=== PATIENT | female | born 1980 | race Two or more races ===

== ENCOUNTER 2018-04-18 18:55 | Emergency (ER) | payer MEDICAID ==
[2018-04-18] MEDS ORDERED: Sodium Chloride 0.9% 1,000 ML IV ONE (19:04)
--- NOTE | 2018-04-18 19:36 | EDM.PDOC ---
ED HPI GENERAL MEDICAL PROBLEM - General Chief Complaint: Gastrointestinal Problem Stated Complaint: NAUSEA AND VOMITING Time Seen by Provider: 04/18/18 18:58 Source of Information: Reports: Patient History Limitations: Reports: No Limitations - History of Present Illness INITIAL COMMENTS - FREE TEXT/NARRATIVE: HISTORY AND PHYSICAL: History of present illness: Patient is a 37-year-old female who presents to the emergency room with complaints of weakness, nausea and vomiting for one hour. The patient states she was outside with her mother when they both smelled gas. They state they returned to their apartment building when symptoms started to present. They called EMS for transport and evaluation. [facility] has been on scene and assessed for gas leaks/carbon monoxide and were unable to identify. She denies any fever, chills, chest pain, shortness of breath or cough. Denies any abdominal pain, diarrhea, constipation or dysuria. She denies having any recent food or triggers that would cause her symptoms (that would also have her mother have the same symptoms). 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 Review of systems: As per history of present illness and below otherwise all systems reviewed and negative. Past medical history: As per history of present illness and as reviewed below otherwise noncontributory. Surgical history: As per history of present illness and as reviewed below otherwise noncontributory. Social history: No reported history of drug or alcohol abuse. Family history: As per history of present illness and as reviewed below otherwise noncontributory. Physical exam: General: Well-developed and well-nourished 37-year-old female. Alert and oriented. Nontoxic appearing and in no acute distress. HEENT: Atraumatic, normocephalic, pupils equal and reactive bilaterally, negative for conjunctival pallor or scleral icterus, mucous membranes moist, throat clear, neck supple, nontender, trachea midline. No drooling or trismus noted. No meningeal signs Lungs: Clear to auscultation, breath sounds equal bilaterally, chest nontender. Heart: S1S2, regular rate and rhythm without overt murmur Abdomen: Soft, nondistended, nontender. Negative for masses or hepatosplenomegaly. Negative for costovertebral tenderness. Pelvis: Stable nontender. Genitourinary: Deferred. Rectal: Deferred. Skin: Intact, warm, dry. No lesions or rashes noted. Extremities: Atraumatic, negative for cords or calf pain. Neurovascular unremarkable. Neuro: Awake, alert, oriented. Cranial nerves II through XII unremarkable. Cerebellum unremarkable. Motor and sensory unremarkable throughout. Exam nonfocal. Notes: Lab work is unremarkable. She states she feels improved after the IV fluids. She does have a generalized headache. We'll give her Toradol IV. She would like to be discharged to home. We discussed supportive care measures and signs and symptoms that would prompt her to return to the emergency room. She denies any further questions or concerns at this time. Diagnostics: CBC, CMP, UA, HCGU, Drug Screen, Carboxyhemaglobin Therapeutics: Normal Saline, Toradol Prescription: None Impression: Nausea and vomiting Headache Plan: 1. Get plenty of rest and adequate hydration over the next 24 hours. Weber diet , advance as tolerated. 2. Tylenol and/or ibuprofen as needed for pain management. 3. Eloped with her primary care provider in the next 1-2 days. Return to the ED as needed and as discussed. Definitive disposition and diagnosis as appropriate pending reevaluation and review of above. - Related Data Allergies Allergy/AdvReac Type Severity Reaction Status Date / Time No Known Allergies Allergy Verified 04/18/18 19:16 Home Meds: Home Meds Amitriptyline [Elavil] 25 mg PO BEDTIME 04/18/18 [History] FLUoxetine HCl [Prozac] 20 mg PO DAILY 04/18/18 [History] Past Medical History Psychiatric History: Reports: Depression - Past Surgical History Female Surgical History: Reports: Breast Reduction, Tubal Ligation Social & Family History - Tobacco Use Smoking Status *Q: Never Smoker Second Hand Smoke Exposure: No - Caffeine Use Caffeine Use: Reports: Coffee - Recreational Drug Use Recreational Drug Use: No ED ROS GENERAL - Review of Systems Review Of Systems: ROS reveals no pertinent complaints other than HPI. ED EXAM, GI/ABD - Physical Exam Exam: See Below (See dictation) Course - Vital Signs Last Recorded V/S: Last Vital Signs Temp 97.8 F 04/18/18 19:05 Pulse 90 04/18/18 19:05 Resp 16 04/18/18 19:05 BP 121/99 H 04/18/18 19:05 Pulse Ox 97 04/18/18 19:05 - Orders/Labs/Meds Orders: Active Orders 24 hr Category Date Time Status Ketorolac [Toradol] Med 04/18/18 20:18 Once 30 mg IVPUSH ONETIME ONE Labs: Laboratory Tests 04/18/18 04/18/18 04/18/18 Range/Units 19:12 19:12 19:12 WBC 6.67 (4.0-11.0) K/uL RBC 4.58 (4.30-5.90) M/uL Hgb 13.4 (12.0-16.0) g/dL Hct 39.7 (36.0-46.0) % MCV 86.7 (80.0-98.0) fL MCH 29.3 (27.0-32.0) pg MCHC 33.8 (31.0-37.0) g/dL RDW Std Deviation 39.0 (28.0-62.0) fl RDW Coeff of Jimi 12 (11.0-15.0) % Plt Count 261 (150-400) K/uL MPV 10.50 (7.40-12.00) fL Neut % (Auto) 40.1 L (48.0-80.0) % Lymph % (Auto) 38.5 (16.0-40.0) % [place] % (Auto) 9.9 (0.0-15.0) % Eos % (Auto) 11.2 H (0.0-7.0) % Baso % (Auto) 0.3 (0.0-1.5) % Neut # (Auto) 2.7 (1.4-5.7) K/uL Lymph # (Auto) 2.6 H (0.6-2.4) K/uL [place] # (Auto) 0.7 (0.0-0.8) K/uL Eos # (Auto) 0.8 H (0.0-0.7) K/uL Baso # (Auto) 0.0 (0.0-0.1) K/uL Nucleated RBC % 0.0 /100WBC Nucleated RBCs # 0 K/uL ABG Carboxyhemoglobin 1.8 (0-15) % Sodium 135 L (136-145) mmol/L Potassium 4.3 (3.5-5.1) mmol/L Chloride 103 (98-107) mmol/L Carbon Dioxide 24.8 (21.0-32.0) mmol/L BUN 11 (7.0-18.0) mg/dL Creatinine 0.5 L (0.6-1.0) mg/dL Est Cr Clr Drug Dosing TNP Estimated GFR (MDRD) > 60.0 ml/min Glucose 95 (74-106) mg/dL Calcium 10.2 H (8.5-10.1) mg/dL Total Bilirubin 0.3 (0.2-1.0) mg/dL AST 27 (15-37) IU/L ALT 59 (14-63) IU/L Alkaline Phosphatase 69 (46-116) U/L Total Protein 7.9 (6.4-8.2) g/dL Albumin 3.6 (3.4-5.0) g/dL Globulin 4.3 H (2.0-3.5) g/dL Albumin/Globulin Ratio 0.8 L (1.3-2.8) Urine Color Urine Appearance Urine pH (5.0-8.0) Ur Specific [place] (1.001-1.035) Urine Protein (NEGATIVE) mg/dL Urine Glucose (UA) (NEGATIVE) mg/dL Urine Ketones (NEGATIVE) mg/dL Urine Occult Blood (NEGATIVE) Urine Nitrite (NEGATIVE) Urine Bilirubin (NEGATIVE) Urine Urobilinogen (<2.0) EU/dL Ur Leukocyte Esterase (NEGATIVE) Urine RBC (0-2/HPF) Urine WBC (0-5/HPF) Ur Epithelial Cells (NONE-FEW) Urine Bacteria (NEGATIVE) Urine HCG, Qual (NEGATIVE) Urine Opiates Screen (NEGATIVE) Ur Oxycodone Screen (NEGATIVE) Urine Methadone Screen (NEGATIVE) Ur Barbiturates Screen (NEGATIVE) Ur Phencyclidine Scrn (NEGATIVE) Ur Amphetamine Screen (NEGATIVE) U Methamphetamines Scrn (NEGATIVE) U Benzodiazepines Scrn (NEGATIVE) U Cocaine Metab Screen (NEGATIVE) U Marijuana (THC) Screen (NEGATIVE) 04/18/18 04/18/18 04/18/18 Range/Units 19:17 19:17 19:17 WBC (4.0-11.0) K/uL RBC (4.30-5.90) M/uL Hgb (12.0-16.0) g/dL Hct (36.0-46.0) % MCV (80.0-98.0) fL MCH (27.0-32.0) pg MCHC (31.0-37.0) g/dL RDW Std Deviation (28.0-62.0) fl RDW Coeff of Jimi (11.0-15.0) % Plt Count (150-400) K/uL MPV (7.40-12.00) fL Neut % (Auto) (48.0-80.0) % Lymph % (Auto) (16.0-40.0) % [place] % (Auto) (0.0-15.0) % Eos % (Auto) (0.0-7.0) % Baso % (Auto) (0.0-1.5) % Neut # (Auto) (1.4-5.7) K/uL Lymph # (Auto) (0.6-2.4) K/uL [place] # (Auto) (0.0-0.8) K/uL Eos # (Auto) (0.0-0.7) K/uL Baso # (Auto) (0.0-0.1) K/uL Nucleated RBC % /100WBC Nucleated RBCs # K/uL ABG Carboxyhemoglobin (0-15) % Sodium (136-145) mmol/L Potassium (3.5-5.1) mmol/L Chloride (98-107) mmol/L Carbon Dioxide (21.0-32.0) mmol/L BUN (7.0-18.0) mg/dL Creatinine (0.6-1.0) mg/dL Est Cr Clr Drug Dosing Estimated GFR (MDRD) ml/min Glucose (74-106) mg/dL Calcium (8.5-10.1) mg/dL Total Bilirubin (0.2-1.0) mg/dL AST (15-37) IU/L ALT (14-63) IU/L Alkaline Phosphatase (46-116) U/L Total Protein (6.4-8.2) g/dL Albumin (3.4-5.0) g/dL Globulin (2.0-3.5) g/dL Albumin/Globulin Ratio (1.3-2.8) Urine Color YELLOW Urine Appearance CLEAR Urine pH 6.0 (5.0-8.0) Ur Specific [place] 1.020 (1.001-1.035) Urine Protein NEGATIVE (NEGATIVE) mg/dL Urine Glucose (UA) NEGATIVE (NEGATIVE) mg/dL Urine Ketones NEGATIVE (NEGATIVE) mg/dL Urine Occult Blood TRACE-INTACT (NEGATIVE) Urine Nitrite NEGATIVE (NEGATIVE) Urine Bilirubin NEGATIVE (NEGATIVE) Urine Urobilinogen 0.2 (<2.0) EU/dL Ur Leukocyte Esterase TRACE (NEGATIVE) Urine RBC 0-2 (0-2/HPF) Urine WBC 0-2 (0-5/HPF) Ur Epithelial Cells FEW (NONE-FEW) Urine Bacteria FEW (NEGATIVE) Urine HCG, Qual NEGATIVE (NEGATIVE) Urine Opiates Screen NEGATIVE (NEGATIVE) Ur Oxycodone Screen NEGATIVE (NEGATIVE) Urine Methadone Screen NEGATIVE (NEGATIVE) Ur Barbiturates Screen NEGATIVE (NEGATIVE) Ur Phencyclidine Scrn NEGATIVE (NEGATIVE) Ur Amphetamine Screen NEGATIVE (NEGATIVE) U Methamphetamines Scrn NEGATIVE (NEGATIVE) U Benzodiazepines Scrn NEGATIVE (NEGATIVE) U Cocaine Metab Screen NEGATIVE (NEGATIVE) U Marijuana (THC) Screen NEGATIVE (NEGATIVE) Meds: Medications Discontinued Medications Generic Name Dose Route Start Last Admin Trade Name Rivas PRN Reason Stop Dose Admin Sodium Chloride 1,000 mls @ 999 mls/hr 04/18/18 19:04 04/18/18 19:25 Normal Saline IV 04/18/18 20:04 999 mls/hr STAT ONE Administration Departure - Departure Time of Disposition: 20:19 Disposition: Home, Self-Care 01 Clinical Impression: Headache Qualifiers: Headache type: unspecified Headache chronicity pattern: acute headache Intractability: not intractable Qualified Code(s): R51 - Headache Nausea and vomiting Qualifiers: Vomiting type: unspecified Vomiting Intractability: non-intractable Qualified Code(s): R11.2 - Nausea with vomiting, unspecified - Discharge Information Forms: ED Department Discharge Additional Instructions: The following information is given to patients seen in the emergency department who are being discharged to home. This information is to outline your options for follow-up care. We provide all patients seen in our emergency department with a follow-up referral. The need for follow-up, as well as the timing and circumstances, are variable depending upon the specifics of your emergency department visit. If you don't have a primary care physician on staff, we will provide you with a referral. We always advise you to contact your personal physician following an emergency department visit to inform them of the circumstance of the visit and for follow-up with them and/or the need for any referrals to a consulting specialist. The emergency department will also refer you to a specialist when appropriate. This referral assures that you have the opportunity for follow-up care with a specialist. All of these measure are taken in an effort to provide you with optimal care, which includes your follow-up. Under all circumstances we always encourage you to contact your private physician who remains a resource for coordinating your care. When calling for follow-up care, please make the office aware that this follow-up is from your recent emergency room visit. If for any reason you are refused follow-up, please contact the [facility] Emergency Department at and asked to speak to the emergency department charge nurse. [facility] [address] [place] [id number] 1. Get plenty of rest and adequate hydration over the next 24 hours. Weber diet , advance as tolerated. 2. Tylenol and/or ibuprofen as needed for pain management. 3. Eloped with her primary care provider in the next 1-2 days. Return to the ED as needed and as discussed. - My Orders Last 24 Hours: My Active Orders 04/18/18 20:18 Ketorolac [Toradol] 30 mg IVPUSH ONETIME ONE - Assessment/Plan Last 24 Hours: My Active Orders 04/18/18 20:18 Ketorolac [Toradol] 30 mg IVPUSH ONETIME ONE
[2018-04-18 19:55] LABS: CHLORIDE,CL 103 mmol/L (98-107); SODIUM,NA 135 mmol/L (136-145)
[2018-04-18] MEDS ORDERED: Ketorolac 30 MG/ML SDV IVPUSH ONE (20:18)
== END 2018-04-18 20:44 | disposition home or self-care (01) ==
LOC: MW.ED 18:55
DX: R11.2 Nausea with vomiting, unspecified (principal); R51 Headache; Z79.899 Other long term (current) drug therapy
CPT/HCPCS: 36415; 80053; 80305; 81001; 81025; 82375; 85025; 96361; 96374; 99284; J1885; J7040; 99283

== ENCOUNTER 2019-10-08 16:21 | Emergency (ER) | payer MEDICAID ==
--- NOTE | 2019-10-08 17:52 | CR ---
INDICATION: Cough; body aches. Comparison: None. TECHNIQUE: Portable AP chest. FINDINGS: Normal size cardiac silhouette. Clear lung ponce with no evidence of acute pneumonic infiltrates or CHF. No pneumothorax or pleural effusion. IMPRESSION: Negative portable AP chest. Dictated by Kim Link MD @ Oct 08 2019 5:49PM Signed by Dr. Kim Link @ Oct 08 2019 5:50PM
--- NOTE | 2019-10-08 19:16 | EDM.PDOC ---
ED HPI GENERAL MEDICAL PROBLEM - General Chief Complaint: Respiratory Problem Stated Complaint: COUGH Time Seen by Provider: 10/08/19 18:00 - History of Present Illness INITIAL COMMENTS - FREE TEXT/NARRATIVE: 39 y/o female no medical problems, presetning to ED for cough, nasal congestion , body aches for a couple of days. pleuritic discomfort with coughing. no travel. no known covid contacts. reports fatigue and shortness of breath specially when coughing. back Pain Score (Numeric/FACES): 5 - Related Data Allergies Allergy/AdvReac Type Severity Reaction Status Date / Time No Known Allergies Allergy Verified 10/08/19 16:57 Home Meds: Home Meds Amitriptyline [Elavil] 25 mg PO DAILY 10/08/19 [History] FLUoxetine HCl [Prozac] 20 mg PO DAILY 10/08/19 [History] Levothyroxine mcg PO DAILY 10/08/19 [History] Past Medical History Psychiatric History: Reports: Depression - Infectious Disease History Infectious Disease History: Reports: None - Past Surgical History Female Surgical History: Reports: Breast Reduction, Tubal Ligation Musculoskeletal Surgical History: Reports: Other (See Below) Other Musculoskeletal Surgeries/Procedures:: right hand surgery. right ankle surgery Social & Family History - Family History Family Medical History: Noncontributory - Tobacco Use Smoking Status *Q: Never Smoker - Caffeine Use Caffeine Use: Reports: Coffee, Tea - Recreational Drug Use Recreational Drug Use: No ED ROS GENERAL - Review of Systems Review Of Systems: Comprehensive ROS is negative, except as noted in HPI. ED EXAM, GENERAL - Physical Exam Exam: See Below Exam Limited By: No Limitations General Appearance: Alert, WD/WN, No Apparent Distress Ears: Normal External Exam Nose: Normal Inspection Neck: Normal Inspection, Supple Respiratory/Chest: No Respiratory Distress, Lungs Clear, Normal Breath Sounds, No Accessory Muscle Use, Other (chest wall tenderness ) GI/Abdominal: Soft, Non-Tender Neurological: Alert, Oriented Skin Exam: Warm, Dry Course - Vital Signs Last Recorded V/S: Last Vital Signs Temp 96.4 F L 10/08/19 16:58 Pulse 94 10/08/19 16:58 Resp 20 10/08/19 16:58 BP 138/93 H 10/08/19 16:58 Pulse Ox 96 10/08/19 16:58 - Re-Assessments/Exams Free Text/Narrative Re-Assessment/Exam: 10/09/19 13:05 patient presenting with URI symptoms. no pna or symptoms to suggest pna. cxr was clear. patient given strict self isolation instructions due to covid. return precautions discussed. Departure - Departure Time of Disposition: 19:15 Disposition: Home, Self-Care 01 Clinical Impression: Viral URI with cough - Discharge Information Instructions: Upper Respiratory Infection, Adult, [id number] Referrals: PCP,None [Primary Care Provider] - Forms: ED Department Discharge Additional Instructions: COVID precautions self isolation: can discontinue when: You have had no fever for at least 72 hours (that is three full days of no fever without the use medicine that reduces fevers) AND other symptoms have improved (for example, when your cough or shortness of breath have improved) AND at least 7 days have passed since your symptoms first appeared The following information is given to patients seen in the emergency department who are being discharged to home. This information is to outline your options for follow-up care. We provide all patients seen in our emergency department with a follow-up referral. The need for follow-up, as well as the timing and circumstances, are variable depending upon the specifics of your emergency department visit. If you don't have a primary care physician on staff, we will provide you with a referral. We always advise you to contact your personal physician following an emergency department visit to inform them of the circumstance of the visit and for follow-up with them and/or the need for any referrals to a consulting specialist. The emergency department will also refer you to a specialist when appropriate. This referral assures that you have the opportunity for follow-up care with a specialist. All of these measure are taken in an effort to provide you with optimal care, which includes your follow-up. Under all circumstances we always encourage you to contact your private physician who remains a resource for coordinating your care. When calling for follow-up care, please make the office aware that this follow-up is from your recent emergency room visit. If for any reason you are refused follow-up, please contact the [facility] Emergency Department at and asked to speak to the emergency department charge nurse. Sepsis Event Note - Evaluation Sepsis Screening Result: No Definite Risk - Focused Exam Date Exam was Performed: 10/09/19 Time Exam was Performed: 13:00
== END 2019-10-08 19:35 | disposition home or self-care (01) ==
LOC: MW.ED 16:21
DX: J06.9 Acute upper respiratory infection, unspecified (principal); Z79.899 Other long term (current) drug therapy
CPT/HCPCS: 71045; 71045-26; 99283-25

== ENCOUNTER 2021-05-06 16:07 | Emergency (ER) | payer MEDICAID, OTHER ==
--- NOTE | 2021-05-06 16:09 | EDM.PDOC ---
<Nitin Pham - Last Filed: 05/06/21 18:51> ED HPI GENERAL MEDICAL PROBLEM - General Stated Complaint: KIDNEY HURT Time Seen by Provider: 05/06/21 16:07 Source of Information: Reports: Patient History Limitations: Reports: No Limitations - History of Present Illness INITIAL COMMENTS - FREE TEXT/NARRATIVE: 40-year-old female no past medical history presents for right flank pain. Patient noticed last night development of urinary frequency with some burning sensation at the end of urination. Denies fevers. Had some nausea but no vomiting until she was in the ER when she had a large episode of emesis. She notes the pain is in her right flank and over the last couple hours developed diffuse abdominal pain with bloating. Familial history of kidney stones but no personal history. Has not noted any gross hematuria. LMP ended a few days ago right flank Pain Score (Numeric/FACES): 10 - Related Data Allergies Allergy/AdvReac Type Severity Reaction Status Date / Time No Known Allergies Allergy Verified 05/06/21 16:23 Home Meds: Home Meds Amitriptyline [Elavil] 25 mg PO DAILY 10/08/19 [History] FLUoxetine HCl [Prozac] 20 mg PO DAILY 10/08/19 [History] Levothyroxine 25 mcg PO DAILY 10/08/19 [History] Hydrocodone/Acetaminophen [Hydrocodone-Acetamin 5-325 mg] 1 each PO Q6HR PRN #14 tab 05/06/21 [Rx] Ibuprofen 600 mg PO Q6HR PRN #30 tablet 05/06/21 [Rx] Ondansetron [Zofran ODT] 4 mg PO Q6H PRN #12 tab.dis 05/06/21 [Rx] Tamsulosin HCl [Flomax] 0.4 mg PO BEDTIME #7 cap.er.24h 05/06/21 [Rx] Past Medical History Psychiatric History: Reports: Depression - Infectious Disease History Infectious Disease History: Reports: None - Past Surgical History Female Surgical History: Reports: Breast Reduction, Tubal Ligation Musculoskeletal Surgical History: Reports: Other (See Below) Other Musculoskeletal Surgeries/Procedures:: right hand surgery. right ankle surgery Social & Family History - Family History Family Medical History: No Pertinent Family History - Caffeine Use Caffeine Use: Reports: Coffee, Tea ED ROS GENERAL - Review of Systems Review Of Systems: Comprehensive ROS is negative, except as noted in HPI. ED EXAM, GENERAL - Physical Exam Exam: See Below Exam Limited By: No Limitations General Appearance: Alert, WD/WN, No Apparent Distress Ears: Hearing Grossly Normal Throat/Mouth: Normal Voice, No Airway Compromise Head: Atraumatic, Normocephalic Respiratory/Chest: No Respiratory Distress, Lungs Clear, Normal Breath Sounds, No Accessory Muscle Use Cardiovascular: Normal Peripheral Pulses, Regular Rate, Rhythm GI/Abdominal: Soft, Non-Tender Back Exam: CVA Tenderness (R). No: CVA Tenderness (L) Extremities: Normal Inspection Neurological: Alert, Normal Cognition, Normal Gait Psychiatric: Normal Affect, Normal Mood Skin Exam: Warm, Dry, Intact, Normal Color Course - Re-Assessments/Exams Free Text/Narrative Re-Assessment/Exam: 05/06/21 16:34 Patient symptoms suggestive of pyelonephritis versus UTI versus renal stone. 05/06/21 17:51 Hematuria without evidence of UTI. Will get Noncon CT study to assess for renal stone. 05/06/21 18:51 5 mm obstructive UVJ stone with moderate right hydroureteral nephrosis. Patient's pain is not very well tolerated in the ER. I discussed potentially discharging with urology follow-up but patient is very concerned and does not feel like her pain is adequately managed. Additional Dilaudid ordered. We will reach out for urology referral. Departure - Departure Disposition: Home, Self-Care 01 Clinical Impression: Hydroureteronephrosis, Renal colic on right side - Discharge Information Instructions: Renal Colic, [id number], Kidney Stones, [id number] Referrals: PCP,None [Primary Care Provider] - Additional Instructions: You were seen and evaluated in ER today secondary to pain to your right flank. Your CT scan reveals a 5 mm obstructing stone at the right ureterovesicular junction with resultant moderate right hydronephrosis. This means that you have a kidney stone at the junction of your ureter and your bladder that 5 mm that is causing swelling to your kidney and your ureter. I have discussed your case with Dr. Adrian at [facility] and he is asked that you give his office a call at 8 AM and he will schedule you to be seen as soon as possible. Please call [phone] (and ask for urology )or [phone] at 8 AM tomorrow morning to schedule an appointment to see Dr. Adrian. If they do not give you an appointment within the next couple days, please ask to speak to his nurse so that she can assist you with getting squeezed in sooner. Please return to the ED if you start developing worsening pain or discomfort. The following information is given to patients seen in the emergency department who are being discharged to home. This information is to outline your options for follow-up care. We provide all patients seen in our emergency department with a follow-up referral. The need for follow-up, as well as the timing and circumstances, are variable depending upon the specifics of your emergency department visit. If you don't have a primary care physician on staff, we will provide you with a referral. We always advise you to contact your personal physician following an emergency department visit to inform them of the circumstance of the visit and for follow-up with them and/or the need for any referrals to a consulting specialist. The emergency department will also refer you to a specialist when appropriate. This referral assures that you have the opportunity for follow-up care with a specialist. All of these measure are taken in an effort to provide you with optimal care, which includes your follow-up. Under all circumstances we always encourage you to contact your private physician who remains a resource for coordinating your care. When calling for follow-up care, please make the office aware that this follow-up is from your recent emergency room visit. If for any reason you are refused follow-up, please contact the [facility] Emergency Department at and asked to speak to the emergency department charge nurse. [facility] - [facility] [address] [place] [address] [id number] [address] [address] <Bean Byrd - Last Filed: 05/06/21 21:09> ED HPI GENERAL MEDICAL PROBLEM - History of Present Illness INITIAL COMMENTS - FREE TEXT/NARRATIVE: 8:57 PM: Signout received at 7 PM awaiting urological consultation. I discussed the case with Dr. Adrian in [facility] and he has recommended that the patient call at 8 AM and they will schedule her to be seen by him as soon as possible. Patient is to call [phone] or [phone] and informed him that she was seen in the ER. Patient's pain appears to be well controlled in the ED at 9 PM. Patient feels comfortable with the plan at this time. Patient be discharged with a prescription for Flomax, ibuprofen, Zofran, and [place]. Patient is clinically hemodynamically stable at this time and appears comfortable on her phone. Reassessment at the time of disposition demonstrates that the patient is in no acute distress. The patient has remained stable throughout the entire ED visit and is without objective evidence for acute process requiring urgent intervention or hospitalization. The patient is stable for discharge, counseling is provided as documented above, discussed symptomatic treatment and specific conditions for return. I have spoken with the patient/caregiver and discussed todays findings, in addition to providing specific details for the plan of care. Questions are answered and there is agreement with the plan. Course - Vital Signs Last Recorded V/S: Last Vital Signs Temp 96.1 F L 05/06/21 16:24 Pulse 67 05/06/21 18:58 Resp 20 05/06/21 16:24 BP 160/96 H 05/06/21 18:58 Pulse Ox 96 05/06/21 18:58 - Orders/Labs/Meds Orders: Active Orders 24 hr Category Date Time Status Saline Lock Insert [OM.PC] Stat Oth 05/06/21 16:28 Ordered Labs: Laboratory Tests 05/06/21 05/06/21 05/06/21 Range/Units 11:33 11:33 17:02 WBC 8.96 (4.0-11.0) K/uL RBC 4.77 (4.30-5.90) M/uL Hgb 14.5 (12.0-16.0) g/dL Hct 42.1 (36.0-46.0) % MCV 88.3 (80.0-98.0) fL MCH 30.4 (27.0-32.0) pg MCHC 34.4 (31.0-37.0) g/dL RDW Std Deviation 40.7 (28.0-62.0) fl RDW Coeff of Jimi 13 (11.0-15.0) % Plt Count 382 (150-400) K/uL MPV 11.40 (7.40-12.00) fL Neut % (Auto) 41.0 L (48.0-80.0) % Lymph % (Auto) 41.3 H (16.0-40.0) % [place] % (Auto) 9.8 (0.0-15.0) % Eos % (Auto) 7.6 H (0.0-7.0) % Baso % (Auto) 0.3 (0.0-1.5) % Neut # (Auto) 3.7 (1.4-5.7) K/uL Lymph # (Auto) 3.7 H (0.6-2.4) K/uL [place] # (Auto) 0.9 H (0.0-0.8) K/uL Eos # (Auto) 0.7 (0.0-0.7) K/uL Baso # (Auto) 0.0 (0.0-0.1) K/uL Nucleated RBC % 0.0 /100WBC Nucleated RBCs # 0 K/uL Sodium 141 (136-145) mmol/L Potassium 4.3 (3.5-5.1) mmol/L Chloride 103 (98-107) mmol/L Carbon Dioxide 29.9 (21.0-32.0) mmol/L BUN 12 (7.0-18.0) mg/dL Creatinine 0.6 (0.6-1.0) mg/dL Est Cr Clr Drug Dosing 87.73 mL/min Estimated GFR (MDRD) > 60.0 ml/min Glucose 108 H (74-106) mg/dL Calcium 11.0 H (8.5-10.1) mg/dL Total Bilirubin 0.4 (0.2-1.0) mg/dL AST 28 (15-37) IU/L ALT 57 (14-63) IU/L Alkaline Phosphatase 94 (46-116) U/L Total Protein 8.5 H (6.4-8.2) g/dL Albumin 3.8 (3.4-5.0) g/dL Globulin 4.7 H (2.6-4.0) g/dL Albumin/Globulin Ratio 0.8 L (0.9-1.6) Urine Color YELLOW Urine Appearance SLT CLOUDY Urine pH 6.5 (5.0-8.0) Ur Specific [place] 1.025 (1.001-1.035) Urine Protein NEGATIVE (NEGATIVE) mg/dL Urine Glucose (UA) NEGATIVE (NEGATIVE) mg/dL Urine Ketones NEGATIVE (NEGATIVE) mg/dL Urine Occult Blood LARGE H (NEGATIVE) Urine Nitrite NEGATIVE (NEGATIVE) Urine Bilirubin NEGATIVE (NEGATIVE) Urine Urobilinogen 0.2 (<2.0) EU/dL Ur Leukocyte Esterase NEGATIVE (NEGATIVE) Urine RBC 10-15 (0-2/HPF) Urine WBC 1-3 (0-5/HPF) Ur Epithelial Cells FEW (NONE-FEW) Amorphous Sediment MODERATE (NEGATIVE) Urine Bacteria 1+ H (NEGATIVE) Urine Mucus LIGHT (NONE-MOD) Urine HCG, Qual (NEGATIVE) 05/06/21 Range/Units 17:02 WBC (4.0-11.0) K/uL RBC (4.30-5.90) M/uL Hgb (12.0-16.0) g/dL Hct (36.0-46.0) % MCV (80.0-98.0) fL MCH (27.0-32.0) pg MCHC (31.0-37.0) g/dL RDW Std Deviation (28.0-62.0) fl RDW Coeff of Jimi (11.0-15.0) % Plt Count (150-400) K/uL MPV (7.40-12.00) fL Neut % (Auto) (48.0-80.0) % Lymph % (Auto) (16.0-40.0) % [place] % (Auto) (0.0-15.0) % Eos % (Auto) (0.0-7.0) % Baso % (Auto) (0.0-1.5) % Neut # (Auto) (1.4-5.7) K/uL Lymph # (Auto) (0.6-2.4) K/uL [place] # (Auto) (0.0-0.8) K/uL Eos # (Auto) (0.0-0.7) K/uL Baso # (Auto) (0.0-0.1) K/uL Nucleated RBC % /100WBC Nucleated RBCs # K/uL Sodium (136-145) mmol/L Potassium (3.5-5.1) mmol/L Chloride (98-107) mmol/L Carbon Dioxide (21.0-32.0) mmol/L BUN (7.0-18.0) mg/dL Creatinine (0.6-1.0) mg/dL Est Cr Clr Drug Dosing mL/min Estimated GFR (MDRD) ml/min Glucose (74-106) mg/dL Calcium (8.5-10.1) mg/dL Total Bilirubin (0.2-1.0) mg/dL AST (15-37) IU/L ALT (14-63) IU/L Alkaline Phosphatase (46-116) U/L Total Protein (6.4-8.2) g/dL Albumin (3.4-5.0) g/dL Globulin (2.6-4.0) g/dL Albumin/Globulin Ratio (0.9-1.6) Urine Color Urine Appearance Urine pH (5.0-8.0) Ur Specific [place] (1.001-1.035) Urine Protein (NEGATIVE) mg/dL Urine Glucose (UA) (NEGATIVE) mg/dL Urine Ketones (NEGATIVE) mg/dL Urine Occult Blood (NEGATIVE) Urine Nitrite (NEGATIVE) Urine Bilirubin (NEGATIVE) Urine Urobilinogen (<2.0) EU/dL Ur Leukocyte Esterase (NEGATIVE) Urine RBC (0-2/HPF) Urine WBC (0-5/HPF) Ur Epithelial Cells (NONE-FEW) Amorphous Sediment (NEGATIVE) Urine Bacteria (NEGATIVE) Urine Mucus (NONE-MOD) Urine HCG, Qual NEGATIVE (NEGATIVE) Meds: Medications Discontinued Medications Generic Name Dose Route Start Last Admin Trade Name Freq PRN Reason Stop Dose Admin Hydromorphone HCl 0.5 mg 05/06/21 17:52 05/06/21 18:12 Hydromorphone 2 Mg/Ml Syringe IVPUSH 05/06/21 17:53 0.5 mg ONETIME ONE Administration Hydromorphone HCl 0.5 mg 05/06/21 18:51 05/06/21 19:12 Hydromorphone 2 Mg/Ml Syringe IVPUSH 05/06/21 18:52 0.5 mg ONETIME ONE Administration Hydromorphone HCl 1 mg 05/06/21 19:52 05/06/21 20:01 Hydromorphone 1 Mg/Ml Syringe IVPUSH 05/06/21 19:53 1 mg ONETIME ONE Administration Sodium Chloride 1,000 mls @ 999 mls/hr 05/06/21 16:28 05/06/21 16:35 Normal Saline IV 05/06/21 17:28 999 mls/hr .Bolus ONE Administration Sodium Chloride 1,000 mls @ 999 mls/hr 05/06/21 19:51 05/06/21 19:58 Normal Saline IV 05/06/21 20:51 999 mls/hr .Bolus ONE Administration Ketorolac Tromethamine 15 mg 05/06/21 17:20 05/06/21 17:31 Ketorolac 30 Mg/Ml Sdv IVPUSH 05/06/21 17:21 15 mg ONETIME ONE Administration Ketorolac Tromethamine 15 mg 05/06/21 19:51 05/06/21 19:59 Ketorolac 15 Mg/Ml Sdv IVPUSH 05/06/21 19:52 15 mg Q6H STA Administration Morphine Sulfate 2 mg 05/06/21 16:32 05/06/21 16:40 Morphine 2 Mg/Ml Syringe IVPUSH 05/06/21 16:33 2 mg ONETIME ONE Administration Morphine Sulfate 2 mg 05/06/21 16:32 05/06/21 16:40 Morphine 2 Mg/Ml Syringe IVPUSH 05/06/21 16:33 2 mg ONETIME ONE Administration Ondansetron HCl 4 mg 05/06/21 16:28 05/06/21 16:35 Ondansetron 4 Mg/2 Ml Sdv IVPUSH 05/06/21 16:29 4 mg ONETIME ONE Administration Tamsulosin HCl 0.4 mg 05/06/21 19:50 05/06/21 19:57 Tamsulosin 0.4 Mg Cap.Er PO 05/06/21 19:51 0.4 mg ONETIME ONE Administration Departure - Departure Time of Disposition: 21:00 Condition: Good Sepsis Event Note (ED) - Focused Exam Vital Signs: Vital Signs Temp Pulse Resp BP Pulse Ox 05/06/21 18:58 67 160/96 H 96 05/06/21 17:54 57 L 137/86 96 05/06/21 17:24 55 L 167/90 H 100 05/06/21 16:48 58 L 154/88 H 100 05/06/21 16:24 96.1 F L 57 L 20 130/85 97
[2021-05-06] MEDS ORDERED: Sodium Chloride 0.9% 1,000 ML IV ONE ×2 (16:28→19:51)
[2021-05-06] MEDS ORDERED: Ondansetron 4 MG/2 ML SDV IVPUSH ONE (16:28)
[2021-05-06] MEDS ORDERED: Morphine 2 MG/ML SYRINGE IVPUSH ONE ×2 (16:32)
[2021-05-06 17:17] LABS: BLOOD UREA NITROGEN,BUN 12 mg/dL (7.0-18.0); CARBON DIOXIDE,CO2 29.9 mmol/L (21.0-32.0); CHLORIDE,CL 103 mmol/L (98-107); GLUCOSE RANDOM 108 mg/dL (74-106); POTASSIUM,K 4.3 mmol/L (3.5-5.1); SODIUM,NA 141 mmol/L (136-145)
[2021-05-06] MEDS ORDERED: Ketorolac 30 MG/ML SDV IVPUSH ONE (17:20)
[2021-05-06] MEDS ORDERED: HYDROmorphone 2 MG/ML Syringe IVPUSH ONE ×2 (17:52→18:51)
--- NOTE | 2021-05-06 18:48 | CT ---
CLINICAL INFORMATION: Right flank pain. TECHNIQUE: Noncontrast CT of the abdomen and pelvis was obtained. Coronal and sagittal reformatted images were obtained. COMPARISON: None. FINDINGS: Lower Chest: Lung bases: Unremarkable. Heart/Pericardium: Unremarkable. Abdomen/Pelvis: Liver: Unremarkable. Gallbladder: Unremarkable. Spleen: Unremarkable. Adrenal glands: Unremarkable. Kidneys: Moderate right hydroureteronephrosis with obstructing 5 mm stone at the ureterovesicular junction. Pancreas: Unremarkable. Lymph nodes: No retroperitoneal, mesenteric, inguinal, or pelvic adenopathy by CT criteria. Vascular: Abdominal aorta normal in caliber. Bowel: Evaluation is limited without enteric contrast. Grossly unremarkable. Urinary bladder: Limited evaluation due to underdistention. No gross pathology. Reproductive structures: Unremarkable for patient`s age. No abdominal/pelvis ascites or free intraperitoneal air. Musculoskeletal: Visualized osseous structures demonstrate degenerative changes in the spine. IMPRESSION: 1. 5 mm obstructing stone at the right ureterovesicular junction with resultant moderate right hydroureteronephrosis. Please note that all CT scans at this facility use dose modulation, iterative reconstruction, and/or weight-based dosing when appropriate to reduce radiation dose to as low as reasonably achievable. Dictated by Christiano Casper MD @ 05/06/2021 6:47:01 PM (Electronically Signed)
[2021-05-06] MEDS ORDERED: Tamsulosin 0.4 MG Cap.ER PO ONE (19:50)
[2021-05-06] MEDS ORDERED: Ketorolac 15 MG/ML SDV IVPUSH STA (19:51)
[2021-05-06] MEDS ORDERED: HYDROmorphone 1 MG/ML Syringe IVPUSH ONE (19:52)
== END 2021-05-06 21:20 | disposition home or self-care (01) ==
LOC: MW.ED 16:07
DX: N13.2 Hydronephrosis with renal and ureteral calculous obstruction (principal)
CPT/HCPCS: 36415; 74176; 80053; 81001; 81025; 85025; 96374; 96375; 96376; 99284; A9270; J1170; J1885; J2270; J2405; J7030

== ENCOUNTER 2021-08-01 14:18 | Observation (INO) | payer MEDICAID ==
[2021-08-01] MEDS ORDERED: Sodium Chloride 0.9% 1,000 ML IV ONE (14:54)
[2021-08-01] MEDS ORDERED: traMADol 50 MG Tab PO ONE (14:55)
[2021-08-01 16:09] LABS: BLOOD UREA NITROGEN,BUN 14 mg/dL (7.0-18.0); CARBON DIOXIDE,CO2 28.9 mmol/L (21.0-32.0); CHLORIDE,CL 102 mmol/L (98-107); GLUCOSE RANDOM 121 mg/dL (74-106); POTASSIUM,K 3.6 mmol/L (3.5-5.1); SODIUM,NA 138 mmol/L (136-145)
[2021-08-01] MEDS ORDERED: Calcium Gluconate 10% 1 GM/10 ML SDV IV STA ×2 (16:28→16:43)
[2021-08-01] MEDS ORDERED: HYDROmorphone 1 MG/ML Syringe IVPUSH ONE (16:47)
[2021-08-01 17:45] LABS: CORONAVIRUS COVID-19 NAA NEGATIVE (NEGATIVE); INFLUENZA A NAA NEGATIVE (NEGATIVE); INFLUENZA B NAA NEGATIVE (NEGATIVE)
[2021-08-01] MEDS ORDERED: Ondansetron 4 MG Tab.DIS PO PRN (18:12)
[2021-08-01] MEDS ORDERED: Acetaminophen 325 MG Tab PO PRN (18:12)
[2021-08-01] MEDS ORDERED: Magnesium Sulfate (4.06 MEQ/ML) 5 GM/10 ML SDV IV STA (18:18)
[2021-08-01] MEDS ORDERED: Non-Formulary Medication 1 Each (Hydrocodone/Acetaminophen 1 EACH Tablet) PO PRN (18:22)
[2021-08-01] MEDS ORDERED: Magnesium Sulfate/Water 25 ML IV STA (18:25)
[2021-08-01] MEDS ORDERED: Iopamidol 755 MG/ML 500 ML Multipack Bottle IVPUSH ONE (18:39)
[2021-08-01] MEDS ORDERED: traMADol 50 MG Tab**PTOM PO PRN (21:37)
[2021-08-01] MEDS ORDERED: IBUPROFEN 600 MG PO PRN (21:48)
[2021-08-01] MEDS: CALCIUM CARBONATE 500 MG PO SCH (22:24)
[2021-08-01] MEDS: LIOTHYRONINE 25 MCG PO SCH (22:27)
[2021-08-01] MEDS: DOCUSATE SODIUM PO SCH (22:28)
[2021-08-01] MEDS: TRAMADOL 50 MG PO PRN (22:28)
[2021-08-01] MEDS: SENNOSIDES PO SCH (22:28)
[2021-08-01] MEDS: Lactated Ringers 1,000 ML IV SCH (22:31)
[2021-08-01] MEDS: ACETAMINOPHEN 325 MG PO PRN (23:59)
[2021-08-02] MEDS: TRAMADOL 50 MG PO PRN (06:29)
[2021-08-02] MEDS: Lactated Ringers 1,000 ML IV SCH (06:30)
[2021-08-02] MEDS: CALCIUM CARBONATE 500 MG PO SCH (08:00)
[2021-08-02] MEDS: ACETAMINOPHEN 325 MG PO PRN (08:00)
[2021-08-02] MEDS: DOCUSATE SODIUM PO SCH (08:03)
[2021-08-02] MEDS: LIOTHYRONINE 25 MCG PO SCH (08:03)
[2021-08-02] MEDS: SENNOSIDES PO SCH (08:03)
[2021-08-02] MEDS ORDERED: Acetaminophen/HYDROcodone 325-5 MG Tab PO PRN ×2 (08:09→10:00)
[2021-08-02] MEDS ORDERED: Amitriptyline 25 MG Tab PO SCH (09:00)
[2021-08-02] MEDS ORDERED: Levothyroxine 25 MCG Tab PO SCH (09:00)
[2021-08-02] MEDS ORDERED: FLUoxetine 20 MG Cap PO SCH (09:00)
[2021-08-02 09:01] LABS: BLOOD UREA NITROGEN,BUN 9 mg/dL (7.0-18.0); CARBON DIOXIDE,CO2 28.6 mmol/L (21.0-32.0); CHLORIDE,CL 101 mmol/L (98-107); GLUCOSE RANDOM 99 mg/dL (74-106); POTASSIUM,K 3.6 mmol/L (3.5-5.1); SODIUM,NA 137 mmol/L (136-145)
[2021-08-02] MEDS ORDERED: Calcium Gluconate 10% 1 GM/10 ML SDV IV ONE (10:36)
[2021-08-02] MEDS ORDERED: Calcium Gluconate 2 GM in Sodium Chloride 0.9% 100 ML IV ONE (10:45)
[2021-08-02] MEDS ORDERED: Calcitriol 0.25 MCG Cap PO SCH (10:45)
[2021-08-02] MEDS ORDERED: Magnesium Sulfate (4.06 MEQ/ML) 5 GM/10 ML SDV IV ONE (10:45)
[2021-08-02] MEDS ORDERED: TRAMADOL 50 MG PO PRN (12:30)
[2021-08-02] MEDS ORDERED: Magnesium Sulfate/Water 4 GM in Premix Bag 1 BAG IV ONE (12:45)
[2021-08-02] MEDS ORDERED: Acetaminophen 325 MG Tab PO PRN (14:00)
[2021-08-02] MEDS ORDERED: Calcium Carbonate 500 MG Tab.Chew PO SCH (21:00)
== END 2021-08-02 17:30 | disposition home or self-care (01) ==
LOC: MW.ED 14:18 → MW.MS 16:53
PROVIDERS: ADMIT Student in an Organized Health Care Education/Training Program; ATTEND Student in an Organized Health Care Education/Training Program
DX: E83.51 Hypocalcemia (principal); Z98.890 Other specified postprocedural states; Z79.899 Other long term (current) drug therapy; Z79.890 Hormone replacement therapy; Z85.850 Personal history of malignant neoplasm of thyroid; Z20.822 Contact with and (suspected) exposure to COVID-19
CPT/HCPCS: 0240U; 36415; 70470; 80053; 83735; 85025; A9270; J0610; J1170; J3475; J7030; J7120; Q9967; 96365; 96366; 96367; 96375; 99285-25; G0378

== ENCOUNTER 2021-08-03 15:00 | Emergency (ER) | payer MEDICAID ==
[2021-08-03] MEDS ORDERED: Sodium Chloride 0.9% 10 ML Syringe FLUSH PRN (15:55)
[2021-08-03] MEDS ORDERED: Sodium Chloride 0.9% 2.5 ML Syringe FLUSH PRN (15:55)
[2021-08-03] MEDS ORDERED: Sodium Chloride 0.9% 1,000 ML IV ONE (15:55)
[2021-08-03 16:24] LABS: BLOOD UREA NITROGEN,BUN 13 mg/dL (7.0-18.0); CARBON DIOXIDE,CO2 30.7 mmol/L (21.0-32.0); CHLORIDE,CL 100 mmol/L (98-107); GLUCOSE RANDOM 111 mg/dL (74-106); POTASSIUM,K 4.1 mmol/L (3.5-5.1); SODIUM,NA 138 mmol/L (136-145)
[2021-08-03] MEDS ORDERED: Calcium Gluconate 10% 1 GM/10 ML SDV IV STA (16:38)
[2021-08-03] MEDS ORDERED: Magnesium Sulfate/Water 2 GM in Premix Bag 1 BAG IV STA (16:40)
[2021-08-03] MEDS ORDERED: Ketorolac 30 MG/ML SDV IVPUSH ONE (18:03)
== END 2021-08-03 18:10 | disposition home or self-care (01) ==
LOC: MW.ED 15:00
DX: E83.42 Hypomagnesemia (principal); E83.51 Hypocalcemia; E03.9 Hypothyroidism, unspecified; Z79.899 Other long term (current) drug therapy
CPT/HCPCS: 36415; 80053; 82330; 83735; 85025; 93005; 96365; 96375; 99284; J0610; J1885; J3475; J7030

== ENCOUNTER 2022-07-04 08:31 | Emergency (ER) | payer MEDICAID ==
[2022-07-04] MEDS ORDERED: Sodium Chloride 0.9% 2.5 ML Syringe FLUSH PRN (08:53)
[2022-07-04] MEDS ORDERED: Sodium Chloride 0.9% 1,000 ML IV ONE (08:53)
[2022-07-04] MEDS ORDERED: Sodium Chloride 0.9% 10 ML Syringe FLUSH PRN (08:53)
[2022-07-04 09:25] LABS: CORONAVIRUS COVID-19 NAA NEGATIVE (NEGATIVE); INFLUENZA A NAA POSITIVE (NEGATIVE); INFLUENZA B NAA NEGATIVE (NEGATIVE); RESPIRATORY SYNCYTIAL VIR NAA NEGATIVE (NEGATIVE)
[2022-07-04 09:41] LABS: CARBON DIOXIDE,CO2 25.4 mmol/L (21.0-32.0); POTASSIUM,K 3.7 mmol/L (3.5-5.1)
== END 2022-07-04 12:27 | disposition home or self-care (01) ==
LOC: MW.ED 08:31
DX: J10.1 Influenza due to other identified influenza virus with other respiratory manifestations (principal); Z79.899 Other long term (current) drug therapy; Z20.822 Contact with and (suspected) exposure to COVID-19
CPT/HCPCS: 0241U; 36415; 80053; 83735; 84439; 84443; 85025; 93005; 96360; 99284; J3490; J7030

== ENCOUNTER 2022-11-03 03:05 | Emergency (ER) | payer MEDICAID ==
[2022-11-03] MEDS ORDERED: Sodium Chloride 0.9% 10 ML Syringe FLUSH PRN (03:26)
[2022-11-03] MEDS ORDERED: Sodium Chloride 0.9% 2.5 ML Syringe FLUSH PRN (03:26)
[2022-11-03] MEDS ORDERED: Lactated Ringers 1,000 ML IV ONE ×2 (03:27→04:18)
[2022-11-03] MEDS ORDERED: Ondansetron 4 MG/2 ML SDV IVPUSH ONE (03:27)
[2022-11-03 04:11] LABS: POTASSIUM,K 3.6 mmol/L (3.5-5.1)
[2022-11-03] MEDS ORDERED: Prochlorperazine 10 MG/2 ML SDV IVPUSH ONE (04:18)
[2022-11-03 04:35] LABS: CORONAVIRUS COVID-19 NAA NEGATIVE (NEGATIVE); INFLUENZA A NAA NEGATIVE (NEGATIVE); INFLUENZA B NAA NEGATIVE (NEGATIVE); RESPIRATORY SYNCYTIAL VIR NAA NEGATIVE (NEGATIVE)
== END 2022-11-03 06:00 | disposition home or self-care (01) ==
LOC: MW.ED 03:05
DX: K52.9 Noninfective gastroenteritis and colitis, unspecified (principal); M79.645 Pain in left finger(s); M79.644 Pain in right finger(s)
CPT/HCPCS: 0241U; 36415; 80053; 83735; 85025; 96361; 96374; 96375; 99284; J0780; J2405; J3490; J7120

== ENCOUNTER 2022-12-13 23:34 | Emergency (ER) | payer MEDICAID ==
[2022-12-14] MEDS ORDERED: Famotidine 20 MG/2 ML SDV IVPUSH ONE (00:03)
[2022-12-14] MEDS ORDERED: Sodium Chloride 0.9% 1,000 ML IV ONE (00:03)
[2022-12-14] MEDS ORDERED: Aluminum Hydroxide/Magnesium Hydroxide/Simethicone XS Susp 30 ML Cup PO ONE (00:04)
[2022-12-14 00:18] LABS: APPEARANCE,URINE CLEAR; BILIRUBIN,URINE NEGATIVE (NEGATIVE); COLOR,URINE YELLOW; GLUCOSE,URINE NEGATIVE (NEGATIVE); KETONES,URINE NEGATIVE (NEGATIVE); LEUKOCYTE ESTERASE,URINE NEGATIVE (NEGATIVE); NITRITE,URINE NEGATIVE (NEGATIVE); OCCULT BLOOD,URINE TRACE-INTACT (NEGATIVE); PH,URINE 6.5 (5.0-8.0); PROTEIN,URINE NEGATIVE (NEGATIVE)
[2022-12-14 00:27] LABS: BACTERIA,URINE FEW (NEGATIVE); EPITHELIAL CELLS,URINE FEW (NONE-FEW); RBC,URINE 0-2 (0-2/HPF); WBC,URINE 0-2 (0-5/HPF)
[2022-12-14 00:28] LABS: AMPHETAMINES SCREEN, URINE NEGATIVE (CUTOFF=500); BARBITURATE SCREEN,URINE NEGATIVE (CUTOFF=200); BENZODIAZEPINES SCREEN,URINE NEGATIVE (CUTOFF=150); BUPRENORPHINE SCREEN,URINE NEGATIVE (CUTOFF=10); METHADONE SCREEN, URINE NEGATIVE (CUTOFF=200); METHAMPHETAMINES SCREEN, URINE NEGATIVE (CUTOFF=500); OXYCODONE SCREEN,URINE NEGATIVE (CUT0FF=100); PCP SCREEN,URINE NEGATIVE (CUTOFF=25); PROPOXYPHENE SCREEN,URINE NEGATIVE (CUTOFF=300); THC SCREEN,URINE 20 NG/ML NEGATIVE (CUTOFF=50)
[2022-12-14 00:55] LABS: BASOPHILS PERCENT AUTO 0.3 % (0.0-1.5); EOSINOPHILS PERCENT AUTO 13.7 % (0.0-7.0); HEMATOCRIT 36.6 % (36.0-46.0); HEMOGLOBIN 12.2 g/dL (12.0-16.0); LYMPHOCYTES ABSOLUTE AUTO 2.9 K/uL (0.6-2.4); LYMPHOCYTES PERCENT AUTO 39.7 % (16.0-40.0); MEAN CORPUSCULAR HEMOGLOBIN 29.3 pg (27.0-32.0); MEAN CORPUSCULAR HGB CONC 33.3 g/dL (31.0-37.0); MONOCYTES ABSOLUTE AUTO 1.2 K/uL (0.0-0.8); MONOCYTES PERCENT AUTO 16.4 % (0.0-15.0); NEUTROPHILS ABSOLUTE AUTO 2.2 K/uL (1.4-5.7); NEUTROPHILS PERCENT AUTO 29.9 % (48.0-80.0); PLATELET COUNT,PLT 280 K/uL (150-400); RED BLOOD CELL COUNT 4.16 M/uL (4.30-5.90); WHITE BLOOD CELL COUNT,WBC 7.31 K/uL (4.0-11.0)
[2022-12-14 01:07] LABS: INR 1.01 (0.86-1.11); PTT,PARTIAL THROMBOPLSTIN TIME 29.6 SEC (23.9-30.7)
[2022-12-14] MEDS ORDERED: Morphine 4 MG/ML Syringe IVPUSH ONE (01:11)
[2022-12-14 01:42] LABS: A/G RATIO 0.8 (0.9-1.6); BILIRUBIN TOTAL 0.1 mg/dL (0.2-1.0); CALCIUM 8.5 mg/dL (8.5-10.1); CARBON DIOXIDE,CO2 28.5 mmol/L (21.0-32.0); CREATININE 0.6 mg/dL (0.6-1.0); EST CRCL DRUG DOSING (CG) 85.94 mL/min; MAGNESIUM 1.9 mg/dL (1.8-2.4); POTASSIUM,K 3.9 mmol/L (3.5-5.1); PROTEIN TOTAL,TP 6.9 g/dL (6.4-8.2); TSH ULTRASENSITIVE 0.05 uIU/mL (0.36-3.74)
[2022-12-14 02:07] LABS: T4 FREE 1.02 ng/dL (0.76-1.46)
[2022-12-14] MEDS ORDERED: Pantoprazole 40 MG Tab.CR PO STA (03:06)
== END 2022-12-14 03:28 | disposition home or self-care (01) ==
LOC: MW.ED 23:34
DX: R07.9 Chest pain, unspecified (principal); E03.9 Hypothyroidism, unspecified; Z79.899 Other long term (current) drug therapy
CPT/HCPCS: 36415; 71045; 80053; 80305; 80307; 81001; 83690; 83735; 83880; 84439; 84443; 84484; 84703; 85025; 85379; 85610; 85730; 93005; 96361; 96374; 96375; 99285; A9270; J2270; J3490; J7030; 93010; 99284

== ENCOUNTER 2023-02-12 09:15 | Day surgery (SDC) | payer MEDICAID ==
[~2023-02-12 09:15] MED LIST: Lactated Ringers 1,000 ML IV SCH; Propofol 200 MG/20 ML SDV ONE
== END 2023-02-12 12:00 | disposition home or self-care (01) ==
LOC: MW.SDS 09:15
PROVIDERS: ATTEND Surgery
DX: K44.9 Diaphragmatic hernia without obstruction or gangrene (principal); K22.89 Other specified disease of esophagus; K29.50 Unspecified chronic gastritis without bleeding; K21.00 Gastro-esophageal reflux disease with esophagitis, without bleeding; F43.10 Post-traumatic stress disorder, unspecified; E07.9 Disorder of thyroid, unspecified; R07.9 Chest pain, unspecified; F32.A Depression, unspecified; H26.9 Unspecified cataract; Z20.822 Contact with and (suspected) exposure to COVID-19; E03.9 Hypothyroidism, unspecified; N20.0 Calculus of kidney; G43.909 Migraine, unspecified, not intractable, without status migrainosus; G47.30 Sleep apnea, unspecified; Z79.890 Hormone replacement therapy; Z87.11 Personal history of peptic ulcer disease; Z87.891 Personal history of nicotine dependence
CPT/HCPCS: 43239; J2704; J7120; 00731

== ENCOUNTER 2023-06-09 19:53 | Emergency (ER) | payer BC, MEDICAID ==
[2023-06-09] MEDS ORDERED: Sodium Chloride 0.9% 2.5 ML Syringe FLUSH PRN (20:00)
[2023-06-09] MEDS ORDERED: Sucralfate Suspension 1 GM/10 ML Cup PO ONE (20:00)
[2023-06-09] MEDS ORDERED: Sodium Chloride 0.9% 10 ML Syringe FLUSH PRN (20:00)
[2023-06-09] MEDS ORDERED: Famotidine 20 MG/2 ML SDV IVPUSH ONE (20:00)
[2023-06-09 20:22] LABS: BASOPHILS ABSOLUTE AUTO 0.05 K/uL (0.00-0.20); BASOPHILS PERCENT AUTO 0.5 % (0.0-1.0); EOSINOPHILS ABSOLUTE AUTO 0.88 K/uL (0.00-0.45); EOSINOPHILS PERCENT AUTO 9.1 % (0.0-6.0); HEMATOCRIT 34.8 % (37.0-47.0); HEMOGLOBIN 11.9 g/dL (12.0-16.0); IMMATURE GRAN ABSOLUTE AUTO 0.02 K/uL (0.00-0.05); IMMATURE GRAN PERCENT AUTO 0.2 % (0.0-0.4); LYMPHOCYTES PERCENT AUTO 35.2 % (24.0-44.0); MEAN CORPUSCULAR HEMOGLOBIN 28.8 pg (28.0-32.0); MEAN CORPUSCULAR HGB CONC 34.2 g/dL (32.0-36.0); MEAN CORPUSCULAR VOLUME 84.3 fL (83.0-99.0); MEAN PLATELET VOLUME 10.4 fL (9.4-12.3); MONOCYTES ABSOLUTE AUTO 0.66 K/uL (0.00-0.80); MONOCYTES PERCENT AUTO 6.8 % (0.0-8.0); NEUTROPHILS ABSOLUTE AUTO 4.66 K/uL (1.80-7.70); NEUTROPHILS PERCENT AUTO 48.2 % (41.0-71.0); PLATELET COUNT,PLT 288 K/uL (150-400); RED BLOOD CELL COUNT 4.13 M/uL (4.10-5.30); WHITE BLOOD CELL COUNT,WBC 9.67 K/uL (3.9-11.3)
[2023-06-09 21:01] LABS: CORONAVIRUS COVID-19 NAA NEGATIVE (NEGATIVE); INFLUENZA A NAA NEGATIVE (NEGATIVE); INFLUENZA B NAA NEGATIVE (NEGATIVE)
[2023-06-09 21:03] LABS: A/G RATIO 0.8 (0.9-1.6); ALANINE AMINOTRANSFERASE,ALT 20 IU/L (14-63); ALKALINE PHOSPHATASE 59 U/L (46-116); ASPARTATE AMNIOTRANSFERASE,AST 15 IU/L (15-37); BILIRUBIN TOTAL 0.2 mg/dL (0.2-1.0); BLOOD UREA NITROGEN,BUN 6 mg/dL (7.0-18.0); CALCIUM 8.1 mg/dL (8.5-10.1); CARBON DIOXIDE,CO2 26.8 mmol/L (21.0-32.0); CHLORIDE,CL 103 mmol/L (98-107); CREATININE 0.7 mg/dL (0.6-1.0); EST CRCL DRUG DOSING (CG) 73.67 mL/min; GLUCOSE RANDOM 140 mg/dL (74-106); LIPASE 33 U/L (16-77); POTASSIUM,K 3.2 mmol/L (3.5-5.1); PROTEIN TOTAL,TP 6.9 g/dL (6.4-8.2); SODIUM,NA 139 mmol/L (136-145); TSH ULTRASENSITIVE 0.22 uIU/mL (0.36-3.74)
[2023-06-09 21:08] LABS: ESTIMATED GFR 109 mL/min (>60)
[2023-06-09] MEDS ORDERED: Potassium Chloride 10% 20 MEQ/15 ML Soln 15 ML UD Cup PO ONE (21:19)
[2023-06-09] MEDS ORDERED: Lidocaine 4% 1 each Patch TOP STA (21:21)
[2023-06-09 21:27] LABS: T4 FREE 0.94 ng/dL (0.76-1.46)
== END 2023-06-09 22:52 | disposition home or self-care (01) ==
LOC: MW.ED 19:53
DX: R07.89 Other chest pain (principal); E87.6 Hypokalemia; E03.9 Hypothyroidism, unspecified; Z79.899 Other long term (current) drug therapy; Z20.822 Contact with and (suspected) exposure to COVID-19
CPT/HCPCS: 0240U; 36415; 71046; 80053; 83690; 84439; 84443; 84484; 84703; 85025; 93005; 96374; 99285; A9270; J3490

== ENCOUNTER 2023-10-25 17:41 | Emergency (ER) | payer SELFPAY ==
[2023-10-25] MEDS: Sodium Chloride 0.9% 2.5 ML Syringe FLUSH PRN (18:23)
[2023-10-25] MEDS: Sodium Chloride 0.9% 10 ML Syringe FLUSH PRN (18:23)
[2023-10-25 18:26] LABS: BASOPHILS ABSOLUTE AUTO 0.05 K/uL (0.00-0.20); BASOPHILS PERCENT AUTO 0.6 % (0.0-1.0); EOSINOPHILS ABSOLUTE AUTO 0.82 K/uL (0.00-0.45); EOSINOPHILS PERCENT AUTO 10.5 % (0.0-6.0); HEMATOCRIT 34.3 % (37.0-47.0); HEMOGLOBIN 11.7 g/dL (12.0-16.0); IMMATURE GRAN ABSOLUTE AUTO 0.01 K/uL (0.00-0.05); IMMATURE GRAN PERCENT AUTO 0.1 % (0.0-0.4); LYMPHOCYTES ABSOLUTE AUTO 2.84 K/uL (1.00-4.80); LYMPHOCYTES PERCENT AUTO 36.4 % (24.0-44.0); MEAN CORPUSCULAR HEMOGLOBIN 29.2 pg (28.0-32.0); MEAN CORPUSCULAR HGB CONC 34.1 g/dL (32.0-36.0); MEAN CORPUSCULAR VOLUME 85.5 fL (83.0-99.0); MEAN PLATELET VOLUME 10.8 fL (9.4-12.3); MONOCYTES ABSOLUTE AUTO 0.53 K/uL (0.00-0.80); MONOCYTES PERCENT AUTO 6.8 % (0.0-8.0); NEUTROPHILS ABSOLUTE AUTO 3.55 K/uL (1.80-7.70); NEUTROPHILS PERCENT AUTO 45.6 % (41.0-71.0); PLATELET COUNT,PLT 279 K/uL (150-400); RED BLOOD CELL COUNT 4.01 M/uL (4.10-5.30)
[2023-10-25] MEDS: Sodium Chloride 0.9% 1,000 ML IV STA (18:34)
[2023-10-25] MEDS: Morphine 4 MG/ML Syringe IVPUSH ONE (18:34)
[2023-10-25 18:53] LABS: A/G RATIO 0.7 (0.9-1.6); BILIRUBIN TOTAL 0.1 mg/dL (0.2-1.0); CALCIUM 8.1 mg/dL (8.5-10.1); CARBON DIOXIDE,CO2 26.6 mmol/L (21.0-32.0); CREATININE 0.6 mg/dL (0.6-1.0); EST CRCL DRUG DOSING (CG) 89.35 mL/min; POTASSIUM,K 3.6 mmol/L (3.5-5.1); PROTEIN TOTAL,TP 7.1 g/dL (6.4-8.2)
[2023-10-25 18:58] LABS: LACTIC ACID 1.1 mmol/L (0.4-2.0)
[2023-10-25 19:15] LABS: APPEARANCE,URINE CLEAR; BILIRUBIN,URINE NEGATIVE (NEGATIVE); GLUCOSE,URINE NEGATIVE (NEGATIVE); KETONES,URINE NEGATIVE (NEGATIVE); LEUKOCYTE ESTERASE,URINE NEGATIVE (NEGATIVE); NITRITE,URINE NEGATIVE (NEGATIVE); OCCULT BLOOD,URINE NEGATIVE (NEGATIVE); PROTEIN,URINE NEGATIVE (NEGATIVE); UROBILINOGEN,URINE 0.2 EU/dL (<2.0)
[2023-10-25 19:23] LABS: COLOR,URINE STRAW
[2023-10-25] MEDS: Iopamidol 755 MG/ML 500 ML Multipack Bottle IVPUSH STA (21:22)
[2023-10-25] MEDS: Ketorolac 30 MG/ML SDV IVPUSH ONE (21:52)
[2023-10-25] MEDS ORDERED: Naloxone 0.4 MG/ML SDV IVPUSH PRN (22:36)
[2023-10-25] MEDS: Morphine 2 MG/ML SYRINGE IVPUSH ONE (23:09)
[2023-10-25] MEDS: Dicyclomine 10 MG Cap PO ONE (23:30)
== END 2023-10-25 23:43 | disposition home or self-care (01) ==
LOC: MW.ED 17:41
DX: R10.9 Unspecified abdominal pain (principal); E03.9 Hypothyroidism, unspecified; Z75.8 Other problems related to medical facilities and other health care; Z79.899 Other long term (current) drug therapy
CPT/HCPCS: 36415; 74177; 80053; 81003; 83605; 83690; 84703; 85025; 96374; 96375; 96376; 99284; A9270; J1885; J2270; J3490; J7030; Q9967

== ENCOUNTER 2023-11-14 23:42 | Emergency (ER) | payer BC, MEDICAID ==
[2023-11-14] MEDS: Haloperidol Lactate 5 MG/ML SDV IM ONE (23:54)
[2023-11-14] MEDS: Sodium Chloride 0.9% 1,000 ML IV ONE (23:55)
[2023-11-15 00:10] LABS: BASOPHILS ABSOLUTE AUTO 0.05 K/uL (0.00-0.20); BASOPHILS PERCENT AUTO 0.5 % (0.0-1.0); EOSINOPHILS ABSOLUTE AUTO 0.39 K/uL (0.00-0.45); EOSINOPHILS PERCENT AUTO 3.6 % (0.0-6.0); HEMATOCRIT 40.2 % (37.0-47.0); HEMOGLOBIN 13.6 g/dL (12.0-16.0); IMMATURE GRAN ABSOLUTE AUTO 0.04 K/uL (0.00-0.05); IMMATURE GRAN PERCENT AUTO 0.4 % (0.0-0.4); LYMPHOCYTES ABSOLUTE AUTO 3.91 K/uL (1.00-4.80); LYMPHOCYTES PERCENT AUTO 36.2 % (24.0-44.0); MEAN CORPUSCULAR HEMOGLOBIN 28.9 pg (28.0-32.0); MEAN CORPUSCULAR HGB CONC 33.8 g/dL (32.0-36.0); MEAN CORPUSCULAR VOLUME 85.4 fL (83.0-99.0); MEAN PLATELET VOLUME 10.6 fL (9.4-12.3); MONOCYTES ABSOLUTE AUTO 0.74 K/uL (0.00-0.80); MONOCYTES PERCENT AUTO 6.9 % (0.0-8.0); NEUTROPHILS ABSOLUTE AUTO 5.66 K/uL (1.80-7.70); NEUTROPHILS PERCENT AUTO 52.4 % (41.0-71.0); PLATELET COUNT,PLT 339 K/uL (150-400); RED BLOOD CELL COUNT 4.71 M/uL (4.10-5.30); WHITE BLOOD CELL COUNT,WBC 10.79 K/uL (3.9-11.3)
[2023-11-15] MEDS: Ondansetron 4 MG/2 ML SDV IVPUSH ONE ×2 (00:32→02:16)
[2023-11-15 00:47] LABS: A/G RATIO 0.7 (0.9-1.6); ALANINE AMINOTRANSFERASE,ALT 34 IU/L (14-63); ALBUMIN 3.7 g/dL (3.4-5.0); ALKALINE PHOSPHATASE 45 U/L (46-116); ASPARTATE AMNIOTRANSFERASE,AST 21 IU/L (15-37); BILIRUBIN TOTAL 0.1 mg/dL (0.2-1.0); BLOOD UREA NITROGEN,BUN 9 mg/dL (7.0-18.0); CALCIUM 8.2 mg/dL (8.5-10.1); CARBON DIOXIDE,CO2 21.7 mmol/L (21.0-32.0); CHLORIDE,CL 103 mmol/L (98-107); CREATININE 0.7 mg/dL (0.6-1.0); ESTIMATED GFR 109 mL/min (>60); ETHANOL BLOOD MEDICAL 174 mg/dL; GLUCOSE RANDOM 119 mg/dL (74-106); MAGNESIUM 2.1 mg/dL (1.8-2.4); POTASSIUM,K 3.8 mmol/L (3.5-5.1); PROTEIN TOTAL,TP 8.7 g/dL (6.4-8.2); SODIUM,NA 140 mmol/L (136-145); TSH ULTRASENSITIVE 0.77 uIU/mL (0.36-3.74)
[2023-11-15 01:17] LABS: APPEARANCE,URINE CLEAR; BILIRUBIN,URINE NEGATIVE (NEGATIVE); COLOR,URINE YELLOW; GLUCOSE,URINE NEGATIVE (NEGATIVE); LEUKOCYTE ESTERASE,URINE NEGATIVE (NEGATIVE); NITRITE,URINE NEGATIVE (NEGATIVE); OCCULT BLOOD,URINE NEGATIVE (NEGATIVE); PROTEIN,URINE NEGATIVE (NEGATIVE); UROBILINOGEN,URINE 0.2 EU/dL (<2.0)
[2023-11-15 01:18] LABS: KETONES,URINE NEGATIVE (NEGATIVE)
[2023-11-15 01:19] LABS: AMPHETAMINES SCREEN, URINE NEGATIVE (CUTOFF=500); BARBITURATE SCREEN,URINE NEGATIVE (CUTOFF=200); BENZODIAZEPINES SCREEN,URINE NEGATIVE (CUTOFF=150); BUPRENORPHINE SCREEN,URINE NEGATIVE (CUTOFF=10); METHADONE SCREEN, URINE NEGATIVE (CUTOFF=200); METHAMPHETAMINES SCREEN, URINE NEGATIVE (CUTOFF=500); OXYCODONE SCREEN,URINE NEGATIVE (CUT0FF=100); PCP SCREEN,URINE NEGATIVE (CUTOFF=25); THC SCREEN,URINE 20 NG/ML NEGATIVE (CUTOFF=50)
[2023-11-15] MEDS: diphenhydrAMINE 50 MG/ML SDV IVPUSH ONE (02:41)
[2023-11-15] MEDS: Sodium Chloride 0.9% 1,000 ML IV ONE (03:31)
== END 2023-11-15 06:13 | disposition home or self-care (01) ==
LOC: MW.ED 23:42
DX: F16.10 Hallucinogen abuse, uncomplicated (principal); E03.9 Hypothyroidism, unspecified; Z75.8 Other problems related to medical facilities and other health care; Z79.899 Other long term (current) drug therapy
CPT/HCPCS: 36415; 70450; 80053; 80305; 80307; 81003; 83735; 84443; 84703; 85025; 93005; 96361; 96372; 96374; 96375; 96376; 99285; J1200; J1630; J2405; J3360; J7030; 93010; 99284

== ENCOUNTER 2023-11-15 21:33 | Emergency (ER) | payer BC, MEDICAID ==
[2023-11-15] MEDS: Sodium Chloride 0.9% 1,000 ML IV ONE (21:58)
[2023-11-15 22:09] LABS: BASOPHILS ABSOLUTE AUTO 0.04 K/uL (0.00-0.20); BASOPHILS PERCENT AUTO 0.4 % (0.0-1.0); EOSINOPHILS ABSOLUTE AUTO 0.27 K/uL (0.00-0.45); EOSINOPHILS PERCENT AUTO 2.7 % (0.0-6.0); HEMATOCRIT 34.4 % (37.0-47.0); HEMOGLOBIN 11.8 g/dL (12.0-16.0); IMMATURE GRAN ABSOLUTE AUTO 0.02 K/uL (0.00-0.05); IMMATURE GRAN PERCENT AUTO 0.2 % (0.0-0.4); LYMPHOCYTES ABSOLUTE AUTO 3.84 K/uL (1.00-4.80); LYMPHOCYTES PERCENT AUTO 38.9 % (24.0-44.0); MEAN CORPUSCULAR HEMOGLOBIN 29.3 pg (28.0-32.0); MEAN CORPUSCULAR HGB CONC 34.3 g/dL (32.0-36.0); MEAN CORPUSCULAR VOLUME 85.4 fL (83.0-99.0); MEAN PLATELET VOLUME 10.5 fL (9.4-12.3); MONOCYTES ABSOLUTE AUTO 0.89 K/uL (0.00-0.80); NEUTROPHILS PERCENT AUTO 48.8 % (41.0-71.0); PLATELET COUNT,PLT 299 K/uL (150-400); RED BLOOD CELL COUNT 4.03 M/uL (4.10-5.30); WHITE BLOOD CELL COUNT,WBC 9.86 K/uL (3.9-11.3)
[2023-11-15 22:31] LABS: A/G RATIO 0.7 (0.9-1.6); ALANINE AMINOTRANSFERASE,ALT 29 IU/L (14-63); ALKALINE PHOSPHATASE 39 U/L (46-116); ASPARTATE AMNIOTRANSFERASE,AST 21 IU/L (15-37); BILIRUBIN TOTAL 0.3 mg/dL (0.2-1.0); BLOOD UREA NITROGEN,BUN 6 mg/dL (7.0-18.0); CALCIUM 8.1 mg/dL (8.5-10.1); CHLORIDE,CL 102 mmol/L (98-107); CREATININE 0.7 mg/dL (0.6-1.0); EST CRCL DRUG DOSING (CG) 105.38 mL/min; ETHANOL BLOOD MEDICAL <3 mg/dL; GLUCOSE RANDOM 103 mg/dL (74-106); LIPASE 24 U/L (16-77); POTASSIUM,K 3.6 mmol/L (3.5-5.1); PROTEIN TOTAL,TP 7.3 g/dL (6.4-8.2); SODIUM,NA 139 mmol/L (136-145)
[2023-11-15 22:32] LABS: ESTIMATED GFR 109 mL/min (>60)
[2023-11-15 22:51] LABS: INR 1.04 (0.86-1.11); PTT,PARTIAL THROMBOPLSTIN TIME 30.5 SEC (23.9-30.7)
== END 2023-11-15 23:55 | disposition home or self-care (01) ==
LOC: MW.ED 21:33
DX: F41.9 Anxiety disorder, unspecified (principal); E03.9 Hypothyroidism, unspecified; Z79.899 Other long term (current) drug therapy; Z75.8 Other problems related to medical facilities and other health care
CPT/HCPCS: 36415; 80053; 80307; 83690; 83735; 85025; 85610; 85730; 96361; 96374; 99284; J3360; J7030

== ENCOUNTER 2024-06-09 14:04 | Emergency (ER) | payer SELFPAY ==
[2024-06-09] MEDS: Lidocaine 4% 1 each Patch TOP STA (15:52)
[2024-06-09 15:53] LABS: BASOPHILS ABSOLUTE AUTO 0.05 K/uL (0.00-0.20); BASOPHILS PERCENT AUTO 0.8 % (0.0-1.0); EOSINOPHILS ABSOLUTE AUTO 0.72 K/uL (0.00-0.45); EOSINOPHILS PERCENT AUTO 11.3 % (0.0-6.0); HEMATOCRIT 37.6 % (37.0-47.0); HEMOGLOBIN 12.5 g/dL (12.0-16.0); IMMATURE GRAN ABSOLUTE AUTO 0.06 K/uL (0.00-0.05); IMMATURE GRAN PERCENT AUTO 0.9 % (0.0-0.4); LYMPHOCYTES ABSOLUTE AUTO 2.35 K/uL (1.00-4.80); LYMPHOCYTES PERCENT AUTO 36.8 % (24.0-44.0); MEAN CORPUSCULAR HEMOGLOBIN 29.4 pg (28.0-32.0); MEAN CORPUSCULAR HGB CONC 33.2 g/dL (32.0-36.0); MEAN CORPUSCULAR VOLUME 88.5 fL (83.0-99.0); MEAN PLATELET VOLUME 10.4 fL (9.4-12.3); MONOCYTES ABSOLUTE AUTO 0.57 K/uL (0.00-0.80); MONOCYTES PERCENT AUTO 8.9 % (0.0-8.0); NEUTROPHILS ABSOLUTE AUTO 2.64 K/uL (1.80-7.70); NEUTROPHILS PERCENT AUTO 41.3 % (41.0-71.0); PLATELET COUNT,PLT 326 K/uL (150-400); RED BLOOD CELL COUNT 4.25 M/uL (4.10-5.30); WHITE BLOOD CELL COUNT,WBC 6.39 K/uL (3.9-11.3)
[2024-06-09] MEDS: Ketorolac 30 MG/ML SDV IM ONE (15:53)
[2024-06-09] MEDS: Albuterol/Ipratropium 3.0-0.5 MG/3 ML Neb Soln NEB ONE (15:58)
[2024-06-09 16:19] LABS: A/G RATIO 0.8 (0.9-1.6); ALANINE AMINOTRANSFERASE,ALT 48 IU/L (14-63); ALBUMIN 3.3 g/dL (3.4-5.0); ALKALINE PHOSPHATASE 53 U/L (46-116); ASPARTATE AMNIOTRANSFERASE,AST 23 IU/L (15-37); BILIRUBIN TOTAL 0.2 mg/dL (0.2-1.0); BLOOD UREA NITROGEN,BUN 19 mg/dL (7.0-18.0); CALCIUM 8.6 mg/dL (8.5-10.1); CARBON DIOXIDE,CO2 26.5 mmol/L (21.0-32.0); CHLORIDE,CL 105 mmol/L (98-107); CREATININE 0.7 mg/dL (0.6-1.0); ESTIMATED GFR 109 mL/min (>60); GLUCOSE RANDOM 97 mg/dL (74-106); LIPASE 37 U/L (16-77); MAGNESIUM 2.1 mg/dL (1.8-2.4); POTASSIUM,K 3.8 mmol/L (3.5-5.1); PROTEIN TOTAL,TP 7.3 g/dL (6.4-8.2); SODIUM,NA 138 mmol/L (136-145)
== END 2024-06-09 17:54 | disposition home or self-care (01) ==
LOC: MW.ED 14:04
DX: M94.0 Chondrocostal junction syndrome [Tietze] (principal); E03.9 Hypothyroidism, unspecified; Z75.8 Other problems related to medical facilities and other health care; Z79.890 Hormone replacement therapy; Z79.899 Other long term (current) drug therapy
CPT/HCPCS: 36415; 71045; 80053; 83690; 83735; 84484; 85025; 93005; 94640; 96372; 99285; A9270; J1885; 93010; J7620-GY

== ENCOUNTER 2025-02-19 16:47 | Emergency (ER) | payer SELFPAY ==
[2025-02-19] MEDS ORDERED: Sodium Chloride 0.9% 10 ML Syringe FLUSH PRN (16:55)
[2025-02-19] MEDS ORDERED: Sodium Chloride 0.9% 2.5 ML Syringe FLUSH PRN (16:55)
[2025-02-19 17:16] LABS: BASOPHILS ABSOLUTE AUTO 0.04 K/uL (0.00-0.20); BASOPHILS PERCENT AUTO 0.5 % (0.0-1.0); EOSINOPHILS ABSOLUTE AUTO 0.39 K/uL (0.00-0.45); EOSINOPHILS PERCENT AUTO 5.1 % (0.0-6.0); IMMATURE GRAN ABSOLUTE AUTO 0.01 K/uL (0.00-0.05); IMMATURE GRAN PERCENT AUTO 0.1 % (0.0-0.4); LYMPHOCYTES ABSOLUTE AUTO 2.16 K/uL (1.00-4.80); LYMPHOCYTES PERCENT AUTO 28.1 % (24.0-44.0); MEAN PLATELET VOLUME 10.4 fL (9.4-12.3); MONOCYTES ABSOLUTE AUTO 0.52 K/uL (0.00-0.80); MONOCYTES PERCENT AUTO 6.8 % (0.0-8.0); NEUTROPHILS ABSOLUTE AUTO 4.58 K/uL (1.80-7.70); NEUTROPHILS PERCENT AUTO 59.4 % (41.0-71.0); NRBC ABSOLUTE 0.00 K/uL (0.00-0.02); NRBC PERCENT 0.0 /100WBC (0.0-0.2); PLATELET COUNT,PLT 317 K/uL (150-400); RED BLOOD CELL COUNT 4.37 M/uL (4.10-5.30); WHITE BLOOD CELL COUNT,WBC 7.70 K/uL (3.9-11.3)
[2025-02-19 17:47] LABS: A/G RATIO 0.8 (0.9-1.6); ALANINE AMINOTRANSFERASE,ALT 28 IU/L (14-63); ASPARTATE AMNIOTRANSFERASE,AST 19 IU/L (15-37); BILIRUBIN TOTAL 0.3 mg/dL (0.2-1.0); BLOOD UREA NITROGEN,BUN 15 mg/dL (7.0-18.0); CARBON DIOXIDE,CO2 24.5 mmol/L (21.0-32.0); CHLORIDE,CL 99 mmol/L (98-107); CREATININE 0.8 mg/dL (0.6-1.0); EST CRCL DRUG DOSING (CG) 63.12 mL/min; GLUCOSE RANDOM 94 mg/dL (74-106); POTASSIUM,K 3.9 mmol/L (3.5-5.1); PRO B-TYPE NATRIUR PEPT,BNPPRO 61 pg/mL (0-125); PROTEIN TOTAL,TP 8.3 g/dL (6.4-8.2); SODIUM,NA 136 mmol/L (136-145)
[2025-02-19 17:50] LABS: ESTIMATED GFR 92 mL/min (>60)
[2025-02-19] MEDS: Nitroglycerin 0.4 MG Tab.SL SL PRN (18:04)
== END 2025-02-19 19:42 | disposition home or self-care (01) ==
LOC: MW.ED 16:47
DX: R07.89 Other chest pain (principal); I10 Essential (primary) hypertension; E03.9 Hypothyroidism, unspecified; Z79.890 Hormone replacement therapy; Z79.899 Other long term (current) drug therapy
CPT/HCPCS: 36415; 71045; 80053; 83735; 83880; 84484; 85025; 85379; 93005; 99285; A9270; 93010; 99283

== ENCOUNTER 2025-03-18 21:26 | Emergency (ER) | payer OTHER ==
[2025-03-19] MEDS ORDERED: Sodium Chloride 0.9% 2.5 ML Syringe FLUSH PRN (00:07)
[2025-03-19] MEDS ORDERED: Sodium Chloride 0.9% 10 ML Syringe FLUSH PRN (00:07)
[2025-03-19] MEDS: droPERidol 2.5 MG/ML SDV IVPUSH ONE (00:20)
[2025-03-19 00:33] LABS: A/G RATIO 0.8 (0.9-1.6); ALANINE AMINOTRANSFERASE,ALT 21 IU/L (14-63); ASPARTATE AMNIOTRANSFERASE,AST 17 IU/L (15-37); BILIRUBIN TOTAL 0.2 mg/dL (0.2-1.0); BLOOD UREA NITROGEN,BUN 14 mg/dL (7.0-18.0); CARBON DIOXIDE,CO2 25.6 mmol/L (21.0-32.0); CHLORIDE,CL 105 mmol/L (98-107); CREATININE 0.8 mg/dL (0.6-1.0); EST CRCL DRUG DOSING (CG) 63.12 mL/min; ESTIMATED GFR 92 mL/min (>60); GLUCOSE RANDOM 114 mg/dL (74-106); POTASSIUM,K 3.7 mmol/L (3.5-5.1); PRO B-TYPE NATRIUR PEPT,BNPPRO 36 pg/mL (0-125); PROTEIN TOTAL,TP 6.9 g/dL (6.4-8.2); SODIUM,NA 140 mmol/L (136-145)
[2025-03-19 00:34] LABS: BASOPHILS ABSOLUTE AUTO 0.04 K/uL (0.00-0.20); BASOPHILS PERCENT AUTO 0.5 % (0.0-1.0); EOSINOPHILS ABSOLUTE AUTO 0.77 K/uL (0.00-0.45); EOSINOPHILS PERCENT AUTO 10.5 % (0.0-6.0); IMMATURE GRAN ABSOLUTE AUTO 0.02 K/uL (0.00-0.05); IMMATURE GRAN PERCENT AUTO 0.3 % (0.0-0.4); LYMPHOCYTES ABSOLUTE AUTO 3.17 K/uL (1.00-4.80); LYMPHOCYTES PERCENT AUTO 43.1 % (24.0-44.0); MEAN PLATELET VOLUME 11.3 fL (9.4-12.3); MONOCYTES ABSOLUTE AUTO 0.66 K/uL (0.00-0.80); MONOCYTES PERCENT AUTO 9.0 % (0.0-8.0); NEUTROPHILS ABSOLUTE AUTO 2.69 K/uL (1.80-7.70); NEUTROPHILS PERCENT AUTO 36.6 % (41.0-71.0); NRBC ABSOLUTE 0.00 K/uL (0.00-0.02); NRBC PERCENT 0.0 /100WBC (0.0-0.2); PLATELET COUNT,PLT 331 K/uL (150-400); RED BLOOD CELL COUNT 4.11 M/uL (4.10-5.30); WHITE BLOOD CELL COUNT,WBC 7.35 K/uL (3.9-11.3)
[2025-03-19] MEDS: Iopamidol 755 MG/ML 500 ML Multipack Bottle IVPUSH ONE (00:54)
[2025-03-19] MEDS: Ketorolac 30 MG/ML SDV IVPUSH ONE (02:46)
[2025-03-19] MEDS: diphenhydrAMINE 50 MG/ML SDV IVPUSH ONE (02:46)
== END 2025-03-19 03:54 | disposition home or self-care (01) ==
LOC: MW.ED 21:26
DX: R06.02 Shortness of breath (principal); I10 Essential (primary) hypertension; E03.9 Hypothyroidism, unspecified; K21.9 Gastro-esophageal reflux disease without esophagitis; Z79.890 Hormone replacement therapy; Z79.84 Long term (current) use of oral hypoglycemic drugs; Z79.899 Other long term (current) drug therapy
CPT/HCPCS: 36415; 71045; 71275; 80053; 83880; 84484; 85025; 93005; 96374; 96375; 99285; J1200; J1790; J1885; Q9967; 93010; 99284